=== PATIENT | female | born 1960 | race Caucasian/White ===

== ENCOUNTER 2017-09-26 21:15 | Emergency (ER) | payer OTHER ==
[2017-09-26] MEDS ORDERED: ACETAMINOPHEN 500 MG TAB PO ONE (21:51)
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
[2017-09-27 01:39] VITALS: BP 127/74
== END 2017-09-27 01:17 | disposition home or self-care (01) ==
DX: S06.0X0A Concussion without loss of consciousness, initial encounter (principal); R20.2 Paresthesia of skin; M50.30 Other cervical disc degeneration, unspecified cervical region; F17.200 Nicotine dependence, unspecified, uncomplicated; V18.2XXA Unspecified pedal cyclist injured in noncollision transport accident in nontraffic accident, initial encounter

== ENCOUNTER 2017-11-25 12:58 | Inpatient (IN) | payer OTHER ==
[2017-11-25] MEDS ORDERED: ONDANSETRON 4 MG/2 ML VIAL IVP ONE (13:31)
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
[2017-11-25 14:00] LABS: PLATELET COUNT 356 10^3/uL (150-400)
[2017-11-25 14:08] LABS: INR 1.02 (0.83-1.16); PROTIME(PATIENT) 13.6 SEC (12.0-15.0)
[2017-11-25] MEDS ORDERED: POLYETHYLENE GLYCOL 3350 17 GM PKT PO PRN (15:01)
[2017-11-25] MEDS ORDERED: LACTULOSE 20 GM/30 ML UDCUP PO PRN (15:01)
[2017-11-25] MEDS ORDERED: MAGNESIUM HYDROXIDE 30 ML UDCUP PO PRN (15:01)
[2017-11-25] MEDS ORDERED: ONDANSETRON 4 MG/2 ML VIAL IVP PRN ×2 (15:01→17:51)
[2017-11-25] MEDS ORDERED: BISACODYL 10 MG SUPP PR PRN (15:01)
[2017-11-25] MEDS ORDERED: NS W/ 20 KCl/L 1,000 ML IV SCH ×2 (15:15→17:15)
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
[2017-11-25] MEDS ORDERED: LR 1,000 ML IV ONE (15:25)
[2017-11-25] MEDS ORDERED: SURGIFLO MATRIX KIT WITH THROMBIN 8 ML TP ONE (16:33)
[2017-11-25] MEDS ORDERED: THROMBIN (BOVINE) 5,000 UNIT VIAL TP ONE (16:34)
[2017-11-25] MEDS ORDERED: AVITENE POWDER 1 GM JAR TP ONE (16:34)
[2017-11-25] MEDS ORDERED: LIDOCAINE 1% 300 MG/30 ML SDV ONE (16:34)
[2017-11-25] MEDS ORDERED: BACITRACIN ZINC 14.2 GM OINTTUBE TP ONE (16:34)
[2017-11-25] MEDS ORDERED: MANNITOL 20% 100 GM/500 ML BAG IV ONE (16:34)
[2017-11-25] MEDS ORDERED: CHLORHEXIDINE GLUC HIBICLENS 118 ML BTL TP ONE (16:34)
[2017-11-25] MEDS ORDERED: GENTAMICIN SULFATE 80 MG/2 ML VIAL ONE (16:35)
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
[2017-11-25] MEDS ORDERED: EPINEPHrine 1 MG/ML INJ ONE (16:40)
[2017-11-25] MEDS ORDERED: PROPOFOL/EMULSION 500 MG/50 ML BOTTLE IV ONE (16:53)
[2017-11-25] MEDS ORDERED: REMIFENTANIL HCL 1 MG VIAL ONE (16:53)
[2017-11-25] MEDS ORDERED: fentaNYL 100 MCG/2 ML INJ ONE ×4 (16:53→18:55)
[2017-11-25] MEDS ORDERED: DEXAMETHASONE 4 MG/ML VIAL ONE ×2 (16:54)
[2017-11-25] MEDS ORDERED: ONDANSETRON 4 MG/2 ML VIAL ONE ×3 (16:54→18:55)
[2017-11-25] MEDS ORDERED: LIDOCAINE 2% 100 MG/5 ML SYR ONE (16:54)
[2017-11-25] MEDS ORDERED: ceFAZolin 2 GM/DEXTROSE 100 ML IV ONE (17:00)
[2017-11-25] MEDS ORDERED: diphenhydrAMINE 25 MG CAP PO PRN (17:11)
[2017-11-25] MEDS ORDERED: hydrALAZINE 20 MG/ML VIAL IVP PRN (17:11)
--- NOTE | 2017-11-25 17:21 | POSTOPPROG ---
Post Op Note Date of Operation: 11/25/17 Surgeon: Neptali Talbert Multifocal Button Generator: Shanti Solorzano PA-C Anesthesia: GET(General Endotracheal) Pre-op Diagnosis: Left sided subdural hematoma Post-op Diagnosis: same Procedure: left sided craniotomy for evacuation of subdural hematoma Inf/Abcess present in the surg proc area at time of surgery?: No Depth: Organ Space EBL: Minimal (25) Complications: None observed Drains: Doyle Aleman (Subdural) SOAP Progress Note Assessment/Plan: Assessment: Plan: 11/25/17 17:18 S: Patient in PACU. Stable O: NAD, VSS CN II-XII grossly intact PERRL, EOMI BORRERO- right side weaker than left Sensation intact to lt touch LETICIA X1- subdural to full suction A: 57 yo female sp left sided craniotomy for evacuation of subdural hematoma P: -Admit to SDU -Q2 hour neuro checks -SBP 90-140 -Repeat Head CT in am -Advance diet as tolerated -Activity as tolerated -Wash hair/incision every day, may shower POD#1 -PT/OT/CHIMNEY REPAIRER -Any changes in neuro/motor exam contact NS Objective: Vital Signs Temp Pulse Resp BP Pulse Ox 36.8 C 55 L 16 103/66 99 11/25/17 15:29 11/25/17 16:34 11/25/17 16:34 11/25/17 16:34 11/25/17 16:34 PT 13.6 SEC (12.0-15.0) 11/25/17 13:45 INR 1.02 (0.83-1.16) 11/25/17 13:45
[2017-11-25] MEDS ORDERED: ePHEDrine SULFATE 25 MG/5 ML SYR ONE (17:43)
[2017-11-25] MEDS ORDERED: NALOXONE HCL 0.4 MG/ML INJ IVP PRN (17:51)
[2017-11-25] MEDS ORDERED: ALBUTEROL 3 ML DEYVIAL IH PRN (17:51)
[2017-11-25] MEDS ORDERED: ACETAMINOPHEN 500 MG TAB PO PRN (17:51)
[2017-11-25] MEDS ORDERED: METOCLOPRAMIDE 10 MG/2 ML VIAL IVP PRN (17:51)
[2017-11-25] MEDS ORDERED: oxyCODONE IR 5 MG TAB PO PRN (17:51)
[2017-11-25] MEDS ORDERED: MEPERIDINE 25 MG/0.5 ML AMP IVP PRN (17:51)
[2017-11-25] MEDS ORDERED: LR 500 ML IV PRN (17:51)
[2017-11-25] MEDS ORDERED: DEXAMETHASONE 4 MG/ML VIAL IVP PRN (17:51)
[2017-11-25] MEDS ORDERED: LABETALOL HCL 5 MG/ML 20 ML MDV IVP PRN (17:51)
[2017-11-25] MEDS ORDERED: PROMETHAZINE HCL 25 MG/ML INJ IVP PRN (17:51)
[2017-11-25] MEDS ORDERED: HYDROCODONE/APAP 5/325 TAB PO PRN (17:51)
[2017-11-25] MEDS ORDERED: PHENYLEPHRINE HCL 100 MCG/ML SYR IVP PRN (17:51)
[2017-11-25] MEDS: fentaNYL 100 MCG/2 ML INJ IVP PRN ×2 (18:57→19:08)
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
[2017-11-25] MEDS: SENNOSIDES/DOCUSATE SODIUM TAB PO SCH (20:58)
[2017-11-25] MEDS: PROGESTERONE,MICR 100 MG CAP PO SCH (20:58)
--- NOTE | 2017-11-25 22:13 | PDMN ---
Medical Necessity Medical necessity: Pt meets inpt criteria per MD order and [facility] [place] [id number], Craniotomy for Traumatic Brain Injury or Intracerebral Hemorrhage, inpt only surgery,5 days. Est LOS>2MN for management of large frontotemporal subdural hematoma confirmed on CT, surgical intervention- L side craniotomy for evacuation of subdural hematoma, ICU monitoring/care, ongoing inpt eval/ treatment.
[2017-11-25] MEDS: HYDROCODONE/APAP 10/325 TAB PO PRN (23:19)
[2017-11-26] MEDS: LEVOTHYROXINE 125 MCG TAB PO SCH (05:35)
[2017-11-26] MEDS: ACETAMINOPHEN 325 MG TAB PO PRN ×2 (05:36→15:03)
--- NOTE | 2017-11-26 05:59 | NEUSURGPN ---
Assessment/Plan: A: 57 yo female sp left sided craniotomy for evacuation of subdural hematoma POD1 P: -Q4 hour neuro checks -SBP 90-140 -Head CT: improved shift with post operative changes and some pneumocephalus -Advance diet as tolerated -Continue LETICIA drain -Activity as tolerated -Wash hair/incision every day, may shower POD#1 -DVT prophx: TEDSm SCDS, will hold on chemical anti-coagulation at this time -PT/OT/MANAGEMENT PROFESSOR -Any changes in neuro/motor exam contact NS Subjective: Denies any headache, nausea, dizziness Objective: NAD, VSS CN II-XII grossly intact PERRL, EOMI BORRERO- Sensation intact to lt touch LETICIA X1- serosanguineous - Physician Discussed Patient with : Nitish Neurosurgery Physical Exam - Vitals, I&O, Labs I and O 11/24/17 11/25/17 11/26/17 05:59 05:59 05:59 Intake Total 1885 Output Total 1070 Balance 815 Weight 77.1 kg Intake: Oral (ml) 710 IV Intake (ml) 650 IV Infused (ml) 525 NS W/ 20 KCl/L 1,000 ml @ 525 100 mls/hr IV CONT EUGENIO Rx#:[id number] Output: Urine (ml) 650 Toilet 650 Estimated Blood Loss (ml) 50 Emesis (ml) 0 LETICIA Drain Output (ml) 370 Left Scalp 370 Other: Number of Voids 1 Toilet 1 Vital Signs Temp Pulse Resp BP Pulse Ox 37.0 C 56 L 12 104/65 96 11/26/17 04:00 11/26/17 05:00 11/26/17 05:00 11/26/17 05:00 11/26/17 05:00 ICD10 Worksheet Patient Problems: Problems Problem Status Onset Intracranial hemorrhage Acute Right sided weakness Acute
[2017-11-26] MEDS: HYDROCODONE/APAP 10/325 TAB PO PRN (06:58)
[2017-11-26] MEDS: SENNOSIDES/DOCUSATE SODIUM TAB PO SCH ×2 (08:21→20:17)
[2017-11-26] MEDS ORDERED: MECLIZINE HCL 12.5 MG TAB PO PRN (10:45)
[2017-11-26] MEDS ORDERED: NS 500 ML IV ONE (10:46)
--- NOTE | 2017-11-26 14:08 | ASMTCMCOM ---
CM Note CM Note Notes: Patient reviewed in ICU rounds. 57 Year old female s/p craniotomy due to subdural hematoma. Doing well. Needs to be determined. Likely home with family support when medically cleared for discharge. Plan: TBD Date Signed: 11/26/2017 02:08 PM Electronically Signed By:Almita Terrazas RN
[2017-11-26] MEDS: PROGESTERONE,MICR 100 MG CAP PO SCH (20:17)
[2017-11-26] MEDS: MELATONIN 3 MG TAB PO PRN (21:07)
[2017-11-27] MEDS: HYDROCODONE/APAP 10/325 TAB PO PRN (02:52)
[2017-11-27] MEDS: SENNOSIDES/DOCUSATE SODIUM TAB PO SCH ×2 (08:45→20:35)
[2017-11-27] MEDS: LEVOTHYROXINE 125 MCG TAB PO SCH (08:45)
--- NOTE | 2017-11-27 08:57 | NEUSURGPN ---
Assessment/Plan: A: 57 yo female sp left sided craniotomy for evacuation of subdural hematoma POD2 P: -Q4 hour neuro checks -SBP 90-140 -Head CT: improved shift with post operative changes and some pneumocephalus -Advance diet as tolerated -LETICIA drain d/c this mornign. -Activity as tolerated -Wash hair/incision every day, may shower -DVT prophx: TEDSm SCDS, will hold on chemical anti-coagulation at this time -PT/OT/ELIGIBILITY WORKER -Any changes in neuro/motor exam contact NS Subjective: Denies any headache, nausea, dizziness Objective: NAD, VSS CN II-XII grossly intact PERRL, EOMI BORRERO- Sensation intact to lt touch LETICIA X1- serosanguineous - Physician Discussed Patient with : Nitish Neurosurgery Physical Exam - Vitals, I&O, Labs I and O 11/26/17 11/27/17 11/28/17 05:59 05:59 05:59 Intake Total 1885 2100 Output Total 1070 315 Balance 815 1785 Weight 77.1 kg Intake: Oral (ml) 710 1500 IV Intake (ml) 650 IV Infused (ml) 525 600 NS W/ 20 KCl/L 1,000 ml @ 525 100 mls/hr IV CONT EUGENIO Rx#:[id number] Ns 500 ml @ 1500 mls/hr 500 IV ONCE ONE Rx#: [id number] ceFAZolin 1 GM/DEXTROSE 100 50 ml @ 200 mls/hr IV Q8H [facility] Rx#:[id number] Output: Urine (ml) 650 Toilet 650 Estimated Blood Loss (ml) 50 Emesis (ml) 0 LETICIA Drain Output (ml) 370 315 Left Scalp 370 315 Other: Intake Quantity Yes Sufficient Number of Voids 1 Toilet 1 1 Vital Signs Temp Pulse Resp BP Pulse Ox 36.7 C 59 L 14 131/76 H 99 11/27/17 06:06 11/27/17 06:06 11/27/17 06:06 11/27/17 06:06 11/27/17 06:06 ICD10 Worksheet Patient Problems: Problems Problem Status Onset Intracranial hemorrhage Acute Right sided weakness Acute
[2017-11-27] MEDS: ACETAMINOPHEN 325 MG TAB PO PRN (13:42)
[2017-11-27] MEDS: PROGESTERONE,MICR 100 MG CAP PO SCH (20:05)
[2017-11-27] MEDS: MELATONIN 3 MG TAB PO PRN (20:05)
[2017-11-28] MEDS: HYDROCODONE/APAP 10/325 TAB PO PRN (00:49)
[2017-11-28] MEDS: LEVOTHYROXINE 125 MCG TAB PO SCH (06:25)
[2017-11-28 10:16] VITALS: BP 118/89
[2017-11-28] MEDS: SENNOSIDES/DOCUSATE SODIUM TAB PO SCH (10:16)
[2017-11-28] MEDS: ACETAMINOPHEN 325 MG TAB PO PRN (10:16)
--- NOTE | 2017-12-03 08:33 | POSTANESTH ---
Post Anesthetic Evaluation Cardiovascular Status: Normal, Stable Respiratory Status: Normal, Stable Level of Consciousness/Mental Status: Can Participate in Eval Pain Control: Adequate, Prn Tx Ordered Nausea/Vomiting Control: Adequate, Prn Tx Ordered Complications Possibly Related to Anesthesia: None Noted
== END 2017-11-28 13:16 | disposition home or self-care (01) | DRG 26 ==
LOC: F2N 19:55
PROVIDERS: ADMIT Neurological Surgery; ATTEND Neurological Surgery
PROC: 00C40ZZ Extirpation of Matter from Intracranial Subdural Space, Open Approach (ICD-10-PCS; principal; 2017-11-25 16:30)
DX: S06.5X9A Traumatic subdural hemorrhage with loss of consciousness of unspecified duration, initial encounter (principal); S06.2X9A Diffuse traumatic brain injury with loss of consciousness of unspecified duration, initial encounter; R47.01 Aphasia; Y93.55 Activity, bike riding; V18.0XXA Pedal cycle driver injured in noncollision transport accident in nontraffic accident, initial encounter; Y92.828 Other wilderness area as the place of occurrence of the external cause; E03.9 Hypothyroidism, unspecified
CPT/HCPCS: 92507-GN; 92523-GN; 97116-GP; 97161-GP; 97166-GO; 97535-GO; C1713; G0515-GO; J0171; J0690; J1100; J1580; J2001; J2270; J2405; J2704; J3010

== ENCOUNTER 2017-12-05 19:33 | Emergency (ER) | payer OTHER ==
[2017-12-05 19:44] VITALS: BP 125/89
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
== END 2017-12-05 20:12 | disposition home or self-care (01) ==
DX: R22.0 Localized swelling, mass and lump, head (principal); E03.9 Hypothyroidism, unspecified; Z98.890 Other specified postprocedural states